=== PATIENT | female | born 1990 | race American Indian/Alaskan Native ===

== ENCOUNTER 2016-07-14 13:31 | Emergency (ER) | payer OTHER ==
[2016-07-14 14:18] LABS: Basophils % (Auto) 0.3 % (0.0-1.8); Eosinophils % (Auto) 0.5 % (0.0-4.3); Hematocrit 37.2 % (30.3-42.9); Hemoglobin 12.3 gm/dl (10.1-14.3); Mean Corpuscular HGB Conc 33 % (30-34); Mean Corpuscular Hemoglobin 28 pg (28-32); Mean Corpuscular Volume 84 fl (79-97); Platelet Count 162 K/mm3 (140-440); Red Blood Count 4.43 M/mm3 (3.65-5.03); Red Cell Distribution Width 15.5 % (13.2-15.2); White Blood Count 10.4 K/mm3 (4.5-11.0)
[2016-07-14 14:30] LABS: Alanine Aminotransferase 13 units/L (7-56); Albumin 4.3 g/dL (3.9-5); Albumin/Globulin Ratio 1.1 %; Alkaline Phosphatase 53 units/L (35-129); Anion Gap 18 mmol/L; BUN/Creatinine Ratio 11.42; Bilirubin,Total 0.3 mg/dL (0.1-1.2); Blood Urea Nitrogen 8 mg/dL (7-17); Calcium 8.8 mg/dL (8.4-10.2); Carbon Dioxide 23 mmol/L (22-30); Chloride 102.6 mmol/L (98-107); Glucose 81 mg/dL (65-100); Lipase 36 units/L (13-60); Potassium 3.6 mmol/L (3.6-5.0); Sodium 140 mmol/L (137-145); Total Protein 8.2 g/dL (6.3-8.2)
[2016-07-14 14:45] LABS: Bilirubin,Urine NEG (Negative); Blood,Urine NEG (Negative); Ketones,Urine TR mg/dL (Negative); Leukocyte Esterase,Urine NEG (Negative); Mucus,Urine 3+ /HPF; Nitrite,Urine NEG (Negative); Urobilinogen,Urine < 2.0 mg/dL (<2.0)
[2016-07-14] MEDS ORDERED: MOTRIN PO ONE (17:14)
--- NOTE | 2016-07-14 17:21 | Emergency Department Report ---
ED General Adult HPI - General Chief complaint: Abdominal Pain Stated complaint: ABD PAIN /POSS Time Seen by Provider: 07/14/16 17:03 Source: patient Mode of arrival: Ambulatory Limitations: No Limitations - History of Present Illness Initial comments: This is a 26-year-old female, previously unknown to me. She does not have a primary care doctor. She thinks she may have a history of elevated blood pressure and asthma but is not certain. No history of abdominal surgeries. Presents to the ER with 2 weeks of suprapubic abdominal cramping, and no menstruation since May. The cramping decreases with laying still, and over -the-counter acetaminophen. It is not new, worsening or different today. There is positive nausea but no vomiting. Positive whitish vaginal discharge. Patient reports that she is actually active with 1 male partner. Denies dyspareunia. States partner does not work condoms. Admits to nausea but no vomiting. Complained of a headache which resolved last week. -: Gradual Location: abdomen Quality: aching Consistency: intermittent Improves with: medication, rest Worsens with: none Associated Symptoms: headaches, nausea/vomiting. denies: confusion, chest pain , cough, diaphoresis, fever/chills, shortness of breath, syncope, weakness - Related Data Previous Rx's Medication Instructions Recorded Last Taken Type Doxycycline [Vibramycin] 100 mg PO Q12HR #28 capsule 07/14/16 Unknown Rx Ibuprofen [Motrin] 600 mg PO Q8H PRN #30 tablet 07/14/16 Unknown Rx Ondansetron [Zofran Odt] 4 mg PO QID PRN #20 tab.rapdis 07/14/16 Unknown Rx Allergies Allergy/AdvReac Type Severity Reaction Status Date / Time Penicillins Allergy Swelling Verified 07/14/16 13:44 ED Review of Systems ROS: Stated complaint: ABD PAIN /POSS Other details as noted in HPI Constitutional: denies: malaise, weakness Eyes: denies: vision change ENT: denies: epistaxis Respiratory: denies: cough Cardiovascular: denies: chest pain Gastrointestinal: abdominal pain Genitourinary: as per HPI, discharge Musculoskeletal: denies: back pain, joint swelling, arthralgia Skin: denies: rash, lesions Neurological: denies: headache, weakness, paresthesias Psychiatric: denies: anxiety, depression ED Past Medical Hx - Past Medical History Hx Hypertension: Yes Hx Asthma: Yes Additional medical history: Heart Murmur - Surgical History Past Surgical History?: No - Social History Smoking Status: Never Smoker Substance Use Type: None - Medications Home Medications: Home Medications Medication Instructions Recorded Confirmed Last Taken Type Doxycycline [Vibramycin] 100 mg PO Q12HR #28 capsule 07/14/16 Unknown Rx Ibuprofen [Motrin] 600 mg PO Q8H PRN #30 tablet 07/14/16 Unknown Rx Ondansetron [Zofran Odt] 4 mg PO QID PRN #20 tab.rapdis 07/14/16 Unknown Rx ED Physical Exam - General Limitations: No Limitations General appearance: alert, in no apparent distress - Head Head exam: Present: atraumatic, normocephalic - Eye Eye exam: Present: normal appearance, EOMI. Absent: nystagmus - ENT ENT exam: Present: normal exam, normal orophraynx, mucous membranes moist, normal external ear exam - Neck Neck exam: Present: normal inspection, full ROM. Absent: tenderness, meningismus - Respiratory Respiratory exam: Present: normal lung sounds bilaterally. Absent: respiratory distress, wheezes, rales, rhonchi, stridor, chest wall tenderness - Cardiovascular Cardiovascular Exam: Present: regular rate, normal rhythm, normal heart sounds. Absent: bradycardia, tachycardia, irregular rhythm, systolic murmur, diastolic murmur, rubs, gallop - GI/Abdominal GI/Abdominal exam: Present: soft, normal bowel sounds, other (there is no right lower quadrant tenderness, rebound or guarding. There is minimal suprapubic tenderness. There is no rebound or guarding). Absent: distended, guarding, rebound, rigid, pulsatile mass - External exam: Present: normal external exam Speculum exam: Present: vaginal discharge Bi-manual exam: Present: cervical motion tendernes, adnexal tenderness, uterine tenderness, other (escorted by CHENCHO Miner). Absent: uterine enlargement - Extremities Exam Extremities exam: Present: normal inspection, full ROM, normal capillary refill. Absent: tenderness, pedal edema, joint swelling, calf tenderness - Back Exam Back exam: Present: normal inspection, full ROM. Absent: tenderness, CVA tenderness (R), CVA tenderness (L), muscle spasm, paraspinal tenderness, vertebral tenderness - Neurological Exam Neurological exam: Present: alert, oriented X3, normal gait, other (Extraocular movements intact. Tongue midline. No facial droop. Facial sensation intact to light touch in the V1, V2, V3 distribution bilaterally. 5 and 5 strength in 4 extremities.. Sensation is intact to light touch in 4 extremities.). Absent : motor sensory deficit - Psychiatric Psychiatric exam: Present: normal affect, normal mood - Skin Skin exam: Present: warm, dry, intact, normal color. Absent: rash ED Course Vital Signs 07/14/16 07/14/16 07/14/16 13:44 17:16 17:17 Temperature 98.3 F 98.8 F Pulse Rate 87 74 Respiratory 18 16 16 Rate Blood Pressure 137/87 Blood Pressure 131/73 [Right] O2 Sat by Pulse 99 99 99 Oximetry 07/14/16 07/14/16 18:20 20:05 Temperature 98.6 F Pulse Rate 75 Respiratory 20 20 Rate Blood Pressure Blood Pressure 128/69 [Right] O2 Sat by Pulse 99 Oximetry - Reevaluation(s) Reevaluation #1: 07/14/16 17:18 Differential diagnosis: , vaginitis, pelvic inflammatory disease, incidental hypertension with proteinuria, constipation, ovarian cyst Assessment and plan: 26-year-old female with 2 weeks of abdominal pain. She is afebrile with reassuring vital signs. There is no right lower quadrant tenderness, rebound or guarding. No fever or leukocytosis. Abdominal exam is benign. Highly doubt acute surgical process. We'll perform gynecologic exam. Urinalysis is not consistent with UTI, does not suggest Chlamydia cystitis. Incidental proteinuria is appreciated. Patient will be treated empirically with ibuprofen. We'll perform gynecologic examination. We will reassess. Reevaluation #2: 07/14/16 17:43 Oncologic examination: Escorted by nurse Precious Josue normal external anatomy. Whitish vaginal discharge. Cervical motion tenderness, adnexal tenderness. Concerned about pelvic inflammatory disease. Patient endorses anaphylaxis to amoxicillin. Will be treated empirically with azithromycin and doxycycline. Symptoms was in for 2 weeks. DOUBT surgical process. Pelvic ultrasound ordered. Reevaluation #3: 07/14/16 22:09 ultrasound was negative. Wet prep was negative. I'm informed that the patient eloped prior to receiving discharge paperwork. However, the patient would've been discharged anyway with the aforementioned results. Therefore I will write up her discharge paperwork, and instruct the charge nurse should call her back to receive her paperwork, antibiotics, and follow- up instructions. 07/15/16 01:37 ED Medical Decision Making - Lab Data Result diagrams: 07/14/16 13:55 07/14/16 13:55 Vital Signs 07/14/16 13:44 Temperature 98.3 F Pulse Rate 87 Respiratory 18 Rate Blood Pressure 137/87 O2 Sat by Pulse 99 Oximetry Labs 07/14/16 07/14/16 07/14/16 13:55 13:55 14:16 WBC 10.4 RBC 4.43 Hgb 12.3 Hct 37.2 MCV 84 MCH 28 MCHC 33 RDW 15.5 H Plt Count 162 Lymph % (Auto) 20.7 [place] % (Auto) 6.9 Eos % (Auto) 0.5 Baso % (Auto) 0.3 Lymph # 2.2 [place] # 0.7 Eos # 0.1 Baso # 0.0 Seg Neutrophils % 71.6 H Seg Neutrophils # 7.5 Sodium 140 Potassium 3.6 Chloride 102.6 Carbon Dioxide 23 Anion Gap 18 BUN 8 Creatinine 0.7 Estimated GFR > 60 BUN/Creatinine Ratio 11.42 Glucose 81 Calcium 8.8 Total Bilirubin 0.3 AST 17 ALT 13 Alkaline Phosphatase 53 Total Protein 8.2 Albumin 4.3 Albumin/Globulin Ratio 1.1 Lipase 36 Urine Color Yellow Urine Turbidity Clear Urine pH 5.0 Ur Specific [place] 1.032 H Urine Protein 30 mg/dl Urine Glucose (UA) Neg Urine Ketones Tr Urine Blood Neg Urine Nitrite Neg Ur Reducing Substances Not Reportable Urine Bilirubin Neg Urine Ictotest Not Reportable Urine Urobilinogen < 2.0 Ur Leukocyte Esterase Neg Urine WBC (Auto) 1.0 Urine RBC (Auto) 5.0 U Epithel Cells (Auto) 3.0 Urine Mucus 3+ Urine HCG, Qual Negative - Radiology Data Radiology results: report reviewed, image reviewed Transvaginal ultrasound demonstrates no evidence of torsion. No evidence of masses noted. Critical care attestation.: If time is entered above; I have spent that time in minutes in the direct care of this critically ill patient, excluding procedure time. ED Disposition Clinical Impression: Abdominal pain, Elevated blood pressure Disposition: DISCHARGED TO HOME OR SELFCARE Is pt being admited?: No Does the pt Need Aspirin: No Condition: Good Instructions: Pelvic Inflammatory Disease (ED), Abdominal Pain (ED) Additional Instructions: Laboratory studies indicated the presence of protein in the urine, as well as elevated blood pressure/hypertension. follwo up with a primary care doctor for these findings within the next month. Long-term complications of hypertension/ elevated blood pressure include stroke, heart attack, disability, , loss of renal function, possibly requiring dialysis. Follow up with an [facility] doctor within the next month. Dr. Pope is a local primary care doctor. [facility] is a local obstetrics group. Return to the ER right away with new pain, worsened pain, migration of pain, fevers or chills, intractable nausea or vomiting, inability to tolerate liquid feeds. Cultures were sent today, results will be available in the next 3-5 days. Please have a primary care doctor or pot builder contact the medical records department to obtain culture results. Given all this, you'll be treated empirically for disease called pelvic inflammatory disease. We typically treat young females with unexplained lower abdominal pain to protect your ability to have children safely in the future. Cultures were sent today, and results will be available next 3-5 days. Please have your primary care doctor call the medical records department to obtain your culture results. Take the antibiotic therapy as directed. Take the nausea medication and pain medication as directed. I recommend outpatient testing for sexually transmitted diseases, including hepatitis, syphilis and HIV. I also recommend that you abstain from sexual activity until you have completed her antibiotic therapy, a physician states that it is safe for you to resume sexual activity, and any partners that you have been sexually active with have been tested/treated/evaluated for sexual transmitted diseases. Please follow-up with physician within 3-5 days. I recommend that you return to the ER right away with worsening pain, migration of pain, intractable nausea/vomiting, inability tolerate liquid feeds. Prescriptions: Doxycycline [Vibramycin] 100 mg PO Q12HR #28 capsule Ibuprofen [Motrin] 600 mg PO Q8H PRN #30 tablet PRN Reason: Pain Ondansetron [Zofran Odt] 4 mg PO QID PRN #20 tab.rapdis PRN Reason: Nausea Referrals: PRIMARY CARE, [Primary Care Provider] - 3-5 Days SIRIA POPE MD [Staff Physician] - 3-5 Days [facility] [Provider Group] - 3-5 Days
[2016-07-14] MEDS ORDERED: VIBRAMYCIN PO ONE (17:42)
[2016-07-14] MEDS ORDERED: ZITHROMAX PO ONE (17:42)
--- NOTE | 2016-07-14 19:05 | Ultrasound Report ---
FINAL REPORT EXAM: US TRANSVAGINAL HISTORY: pelvic pain LMP 05/11/2016 TECHNIQUE: Ultrasound of the pelvis using transvaginal imaging PRIORS: interpreted in conjunction with transabdominal imaging 07/14/2016 FINDINGS: Uterus: Uterus is elongated in size and normal and homogeneous in echogenicity without focal fibroid formation. The uterus measures 9.9 x 5.3 x 5.2 cm in size. There is a septated nabothian cyst in the posterior cervix. Endometrial stripe: Normal and uniform in thickness measuring 15.8 mm. Ovaries: Both ovaries appear normal in size and echogenicity with normal blood flow bilaterally. The right ovary measures 3.5 x 1.8 x 3.0 cm and the left ovary measures 3.6 x 3.4 x 3.2 cm in size. Other: There is no evidence for solid adnexal mass is seen. There is a small amount of free fluid in the cul-de-sac. IMPRESSION: Negative pelvic ultrasound.
--- NOTE | 2016-07-14 19:06 | Ultrasound Report ---
FINAL REPORT EXAM: US PELVIS DUPLEX DOPPLER COMP HISTORY: pelvic pain LMP 05/11/2016 TECHNIQUE: Ultrasound of the pelvis using transabdominal imaging PRIORS: interpreted in conjunction with transvaginal imaging 07/14/2016 FINDINGS: Uterus: Uterus is elongated in size and normal and homogeneous in echogenicity without focal fibroid formation. The uterus measures 9.9 x 5.3 x 5.2 cm in size. There is a septated nabothian cyst in the posterior cervix. Endometrial stripe: Normal and uniform in thickness measuring 15.8 mm. Ovaries: Both ovaries appear normal in size and echogenicity with normal blood flow bilaterally. The right ovary measures 3.5 x 1.8 x 3.0 cm and the left ovary measures 3.6 x 3.4 x 3.2 cm in size. Other: There is no evidence for solid adnexal mass. There is a small amount of free fluid in the cul-de-sac. IMPRESSION: Negative pelvic ultrasound.
[2016-07-14 20:06] VITALS: BP 128/69
== END 2016-07-14 20:41 | disposition home or self-care (01) ==
LOC: ED 13:31
DX: R10.9 Unspecified abdominal pain (principal); I10 Essential (primary) hypertension; J45.909 Unspecified asthma, uncomplicated
CPT/HCPCS: 36415; 76830; 80053; 81001; 81025; 83690; 85025; 87210; 87591; 93975

== ENCOUNTER 2021-12-08 14:36 | Emergency (ER) | payer MEDICAID ==
[2021-12-08 14:40] VITALS: BP 180/110
[2021-12-08] MEDS ORDERED: traMADol 50 MG TAB PO ONE (20:38)
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
[2021-12-08 22:32] LABS: Bilirubin,Urine NEG (Negative); Blood,Urine SM (Negative); Color,Urine Yellow (Yellow); Urobilinogen,Urine < 2.0 mg/dL (<2.0)
[2021-12-08 22:34] LABS: Bacteria,Urine 2+ /HPF (Negative); Hyaline Casts,Urine 5 /LPF; Mucus,Urine 3+ /HPF
[2021-12-08 22:35] LABS: HCG Qualitative,Urine Negative (Negative)
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
== END 2021-12-08 23:54 | disposition home or self-care (01) ==
LOC: ED 14:36
DX: S16.1XXA Strain of muscle, fascia and tendon at neck level, initial encounter (principal); S76.012A Strain of muscle, fascia and tendon of left hip, initial encounter; S86.912A Strain of unspecified muscle(s) and tendon(s) at lower leg level, left leg, initial encounter; I10 Essential (primary) hypertension; J45.909 Unspecified asthma, uncomplicated; Z88.0 Allergy status to penicillin; Z79.899 Other long term (current) drug therapy; V89.2XXA Person injured in unspecified motor-vehicle accident, traffic, initial encounter; Y93.89 Activity, other specified; Y92.89 Other specified places as the place of occurrence of the external cause; Y99.8 Other external cause status
CPT/HCPCS: 72040; 81001; 81025; 99284